=== PATIENT | male | born 1970 | race Hispanic/Latino ===

== ENCOUNTER 2019-09-30 08:07 | Day surgery (SDC) | payer OTHER, SELFPAY ==
[2019-09-28 15:20] VITALS: BMI 26.2
[2019-09-30] VITALS (24 sets, daily range): BP systolic 106–170; BP diastolic 74–109; PULSE 66–89; RESP 10–20; TEMP 35.7–37; O2SAT 94–100; BMI 26.2
--- NOTE | 2019-09-30 | DI.RAD.S_ITS ---
PROCEDURE: XR CERVICAL SPINE 2V OR 3V INDICATIONS: C4-5, C5-C6, ACDF TECHNIQUE: 2 view(s) of the cervical spine were acquired. COMPARISON: [facility] Outside Film, MR, MR CERVICAL SPINE WITHOUT CONTRAST, 06/08/2019, 17:10. [facility], RF, CERVICAL TRANSLAMINAR, 04/22/2019, 8:16. FINDINGS: Bones: Immediately postoperative examination, targeted to the area of surgical intervention at C4-5 and C5-6. Interbody disc prosthesis has been placed at each of these 2 levels, centrally positioned, and no abnormal subluxation is present. Soft tissues: No prevertebral soft tissue swelling. IMPRESSION: Normal alignment established after discectomy and interbody disc prosthesis placement at C4-5 and C5-6. Dictated by: Sammy Timmons M.D. on 09/30/2019 at 12:27 Approved by: Sammy Timmons M.D. on 09/30/2019 at 12:28
[2019-09-30] MEDS: LACTATED RINGERS 1,000 ML 42 ML IV (09:12)
[2019-09-30] MEDS: CELECOXIB 200 MG CAPSULE 400 MG PO (09:16)
[2019-09-30] MEDS: GABAPENTIN 300 MG CAPSULE PO ×2 (09:16→19:59)
[2019-09-30] MEDS: ACETAMINOPHEN 325 MG TABLET 975 MG PO (09:16)
--- NOTE | 2019-09-30 09:58 | PM.PREOP ---
Pre-operative Note Interval Note History & Physical reviewed/Exam performed by Physician: Yes Changes to H&P: No
--- NOTE | 2019-09-30 10:07 | P.OP_ITS ---
Operative Date/Time/Diagnoses Date of procedure: 09/30/19 Time of procedure: 12:11 Pre-op diagnosis: Cervical disc herniation with radiculopathy Post-op diagnosis: same Procedure & Clinicians Procedure: C4-5, C5-6 anterior cervical diskectomy and artificial disc replacement Use of microscope Same procedure as scheduled: Yes Indications: [age] year old male with intractable pain from cervical disc herniation. They had failed conservative management and requested operative intervention. Risks and benefits of surgery were discussed and appropriate consents were obtained. Surgeon: Smith White Tutor Coordinator: Calvin Mehta Anesthesia Type: General Operative Notes Findings: None Closure Type: primary Specimen(s): none sent Prosthetic devices, grafts, tissues, transplants, or devices: Luis Angel Mobi-C Estimated Blood Loss (mL): 10 Procedure in detail: Patient was brought to the operating room and intubated on the table. A time-out was performed. Preoperative antibiotics were given. The neck was prepped and draped in the standard sterile fashion. Using a skin fold, we made a 3 cm oblique incision on the left side. We used Bovie to go through the platysma and then did a standard anterolateral blunt dissection down to the precervical fascia. Fascia was nicked and elevated up. A marker was placed and x-ray was taken for localization. We then subperiosteally elevated up the longus colli muscles. Self-retaining retractors were placed. Fontana pins were placed under x-ray guidance to be parallel to the endplates. We then brought in the microscope. A scalpel used to perform an annulotomy. We then used a combination of pituitaries and curettes and Kerrison to perform a complete anterior diskectomy at C4-5. We took down the PLL and used Kerrison to remove any posterior disc material and osteophytes. At the end we could from the nerve hook cephalad caudally and out the foramen and everything was opened. We distracted open with the parallel appellate court clerk. We then used the horseshoes for sizing. We then used the trials. We then inserted a 13 x 15 x 5 mm size Mobi-C artificial disc replacement under fluoroscopic guidance for positioning. The traction was released and x-ray was checked again. We then moved the retractors down to C5-6. A scalpel used to perform an annulotomy. We then used a combination of pituitaries and curettes and Kerrison to perform a complete anterior diskectomy at C5-6. We took down the PLL and used Kerrison to remove any posterior disc material and osteophytes. At the end we could from the nerve hook cephalad caudally and out the foramen and everything was opened. We distracted open with the parallel appellate court clerk. We then used the horseshoes for sizing. We then used the trials. We then inserted another 13 x 15 x 5 mm size Mobi-C artificial disc replacement under fluoroscopic guidance for positioning. The traction was released and x-ray was checked again. The self-retaining retractors and Fontana pins were removed and final x-rays taken. The wound was irrigated. There was no bleeding. The carotid was beating nicely. The platysma was closed. The superficial was closed. The skin was closed. A sterile dressing was placed. They were then extubated and brought to recovery room with no complications. Complications: none Post-operative Condition: stable Disposition: PACU Plan for aftercare: Overnight admission. Soft collar for comfort.
[2019-09-30] MEDS: CEFAZOLIN 2 GM/100 ML FROZ.PIGGY IV ×2 (10:45→19:20)
--- NOTE | 2019-09-30 11:18 | SUR.OPER ---
Supine, head on gel donut. Arms padded with gel pads, tucked at sides, towel roll under shoulders. Safety belt at thigh. Legs uncrossed.
--- NOTE | 2019-09-30 11:23 | SUR.OPER ---
Fei encinas lower body model# [id number] on high
[2019-09-30] MEDS: THROMBIN (RECOMBINANT) 5,000 UNIT VIAL 5000 UNIT TOP (11:35)
[2019-09-30] MEDS: BUPIVACAINE 0.25% W/ EPI 30 ML VIAL INJ (11:36)
[2019-09-30] MEDS: SODIUM CHLORIDE 0.9% 1,000 ML, GENTAMICIN 80 MG IRR (11:52)
[2019-09-30] MEDS: fentaNYL 100 MCG/2 ML INJ IV ×6 (12:40→13:45)
--- NOTE | 2019-09-30 12:54 | SUR.PHASEI ---
1245 - Anesthesia at bedside assessing pt's comfort level, pt. rated pain at a 9
[2019-09-30] MEDS: HYDROMORPHONE 2 MG INJ IV ×8 (13:00→13:35)
--- NOTE | 2019-09-30 13:21 | SUR.PHASEI ---
report to Kristy Canela RN
[2019-09-30] MEDS: LACTATED RINGERS 1,000 ML 120 ML IV (13:30)
--- NOTE | 2019-09-30 15:42 | PC.NURSE ---
Pt was brought to the AC floor via bed from PACU at approx. 1420. He is accompanied by his paraprofessional interpreter. Pt is sleepy but rousable to voice. Dressing to anterior neck is dry and intact with a quarter size amt of sero-sanguineous drainage. Soft collar is in place. His janelle joined him at the bedside shortly after arriving to the room. She has asked to speak to surgery logging crew supervisor as she is frustrated by a lack of communication during her husbands time in PACU. This has been communicated to surgery staff, by this nurse and they have taken the patient's , Betty's cell number with promise to contact.
[2019-09-30] MEDS: HYDROMORPHONE 0.5 MG INJ IV ×2 (16:18→19:55)
[2019-09-30] MEDS: ONDANSETRON 4 MG/2 ML INJ IV (17:43)
[2019-09-30] MEDS: LACTATED RINGERS 1,000 ML 125 ML IV ×2 (17:44→20:31)
[2019-09-30] MEDS: hydrOXYzine pamoate 25 MG CAPSULE PO (17:46)
--- NOTE | 2019-09-30 18:31 | PC.NURSE ---
Addendum entered by Carmela Bell R.N. 09/30/19 22:33: Rates surgical pain 05/20 and was given naproxen as well as iv dilaudid. Denies nausea. Admits to left scapular pain and states pre-op experienced right scapular pain. 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 Admits to nausea when encouraged to take yogurt with po meds. Reglan administered. Up to bathroom to void with DATA VISUALIZATION DEVELOPER and returned to bed. Requests break from scd's. Addendum entered by Carmela Bell R.N. 09/30/19 19:25: Resting quietly in bed with eyes closed. No further c/o pain or nausea. Room air 95%. Flu vaccine deferred until a.m. prior to discharge. Pt's spouse has left for the evening. Original Note: 1550: Phone call from hourly sign language interpreter service, Teresa, inquiring if pt is in need of anesthesiologists' assistant. Placed this call on hold and in to talk to pt's spouse, Betty, who is present in pt's room. Spouse reports pt is able to speak and understand [place]. States hourly sign language interpreter was present earlier and spouse states, I sent him home because it wasn't necessary. Goes on to state she can also translate for pt. Informed spouse anesthesiologists' assistant is preferred method, but if pt is able to speak and understand [place] there obviously is not a need. This ticket writer then had conversation with pt and pt is able to make needs and wants known to staff. Expresses pain to neck and nausea with attempting to eat. Medicated as per emar. Room air 95%. Head of bed elevated and pt prefers no pillow. Soft collar in place. This was removed briefly to inspect dressing. Moderate amount serosanguinous drainage contained within dressing. Soft collar replaced with ice to region. Dr. White in to see patient and speak with spouse. Anticipates discharge in a.m. Spouse does report pt experiencing left shoulder pain. Vistaril given to manage complaints as well as dilaudid and zofran. Denies need to urinate. BL calf scd's in place.
[2019-09-30] MEDS: NAPROXEN 250 MG TABLET 500 MG PO (19:58)
[2019-09-30] MEDS: DOCUSATE 100 MG CAPSULE PO (19:58)
[2019-09-30] MEDS: SENNOSIDES 8.6 MG TABLET 17.2 MG PO (19:59)
[2019-09-30] MEDS: METOCLOPRAMIDE 10 MG/2 ML INJ IV (20:31)
[2019-10-01] MEDS: BENZOCAINE/MENTHOL 1 LOZ PKT 1 EACH PO (00:34)
[2019-10-01 00:35] VITALS: BP 125/70; PULSE 101; RESP 18; TEMP 36.8; O2SAT 96
--- NOTE | 2019-10-01 01:33 | PC.NURSE ---
Addendum entered by Roxann Rebollar R.N. 10/01/19 02:24: Complains of 7/10 neck and left shoulder pain; medicated with Vicodin after eating some saltines. Original Note: Patient seen and assessed at 0035. Is alert and oriented. Breath sounds CTA with RA sat of 96%. HRR although slightly tachy at 101 bpm. Denies current nausea. BT present and states he has passed flatus. Reports dysuria with voiding earlier; instructed to inform staff/MD if symptom should continue; no frequency or urgency. Is able to turn himself in bed. Has been getting up with SBA. Dressing to anterior neck is intact with drainage previous outlined and no new drainage noted. CMS is intact. Wearing soft collar for comfort. Denies pain although does state his throat is sore; medicated with Cepacol lozenge. Denies dysphagia. Has had foot SCD's off so now agreeable to having them put back on. Fall risk score is moderate and bed alarm is activated for safety.
[2019-10-01] MEDS: CEFAZOLIN 2 GM/100 ML FROZ.PIGGY IV (02:20)
[2019-10-01] MEDS: HYDROCODONE/ACET 5/325 TABLET 2 TAB PO ×2 (02:20→08:43)
[2019-10-01] MEDS: LACTATED RINGERS 1,000 ML 125 ML IV (04:28)
[2019-10-01 05:30] VITALS: BP 118/70; PULSE 84; RESP 18; TEMP 37.1; O2SAT 96
--- NOTE | 2019-10-01 07:37 | PM.PNPO.1 ---
Subjective Subjective Date Patient Seen: 10/01/19 Time Patient Seen: 07:37 Interval history: He is doing very well. No more arm symptoms. Neck pain is tolerable. Swallowing okay. Exam Vital Signs (past 8 hours): - 10/01/19 00:35 10/01/19 05:30 Temperature 98.3 F 98.7 F Pulse Rate 101 H 84 Respiratory Rate 18 18 Blood Pressure 125/70 118/70 Pulse Oximetry 96 96 Oxygen Delivery Method Room Air Oxygen Flow Rate 0 Const Orientation: alert and oriented x3 Back/Spine/Pelvis Other: Mild dry drainage. 5/5 motor both upper extremities Assessment & Plan Post-op Postoperative Procedures: Procedures Operation Date: 09/30/19 10:15 Actual Procedures Side Surgeon p C45 & C56 anterior discectomy & artificial disc replacement Smith White MD he is doing well. Plan to discharge home today. Quality VTE Deep Vein Thrombosis/Pulmonary Embolism Present on Admission: No
--- NOTE | 2019-10-01 08:35 | PT.IIE ---
Current Diagnoses Other cervical disc displacement, unspecified cervical region (09/30/19) Strain of muscle, fascia and tendon at neck level, initial encounter (09/30/19) Surgery Performed Operation Date: 09/30/19 10:15 Actual Procedures p C45 & C56 anterior discectomy & artificial disc replacement - Smith White MD Surgical History (Last Updated 09/29/19 @ 08:54 by Anuradha Benjamin RN) No history of previous surgery (Acute) Medical History (Last Updated 09/29/19 @ 09:00 by Anuradha Benjamin RN) Neck pain (Acute 02/16/18) PTSD (post-traumatic stress disorder) (Acute) Rib fractures (Acute 02/16/18) Right shoulder pain (Acute) Spleen laceration (Acute 02/16/18) Physical Therapy Inpatient Evaluation/Re-Eval M1 PT/OT-IP Prior Functional Status Start: 10/01/19 07:46 Freq: NEEDED Status: Active Protocol: Document 10/01/19 07:50 HH (Rec: 10/01/19 08:35 [email or web address]) Medical Review Prior Functional Status Medical History Reviewed Yes Diet/Fluid Consistency Regular Communication no deficits noted. able to make needs known Mobility and Gait Independent for all mobility without ad Activities of Daily Living and IADL's independent for all ADLs and IADLs. Able to drive. Social History Household Members spouse,children Living Arrangements House Number of Floors (Floors) One Floor Number of Stairs To Enter/Railing? 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 pt sustained a laceration to his spleen, facial contusion and ongoing neck with neurological symptoms to his UEs. 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 M2 PT-IP Current Condition Start: 10/01/19 07:46 Freq: NEEDED Status: Active Protocol: Document 10/01/19 07:50 HH (Rec: 10/01/19 08:35 [email or web address]) Physical Therapy Current Condition Current Condition Evaluation Date 10/01/19 Treatment Diagnosis C4-6 ACDF, arm weakness and numbness Onset Date 09/30/19 Precautions Cervical Spine Precautions Soft Collar for Comfort,Rigid Collar,No Heavy Lifting,Log Roll Weight Bearing Status Weight Bearing Status Full Weight Bearing M3 PT-IP Subjective Start: 10/01/19 07:46 Freq: NEEDED Status: Active Protocol: Document 10/01/19 07:50 (Rec: 10/01/19 08:35 [id number]) Subjective Physical Therapy Visit Type Type Initial Evaluation Visit Start Time 07:50 Visit Stop Time 08:15 Total Visit Minutes 25 Number of PAN WASHER Visits 0 Physical Therapy Visit Comments Patient Comments My pain is at 4/10 Patient Goals To return home with family Therapy Pain Assessment Pain When Pain Assessed During Mobility Pain Present Pain Present Pain Reported Location neck and bilateral arms Intensity 4 Scale Used Numeric (1 - 10) Description Pressure Pain Management Techniques Timing of Activity with Medications M4 PT-IP Mobility and Gait Start: 10/01/19 07:46 Freq: NEEDED Status: Active Protocol: Document 10/01/19 07:50 (Rec: 10/01/19 08:35 [id number]) PT-Bed Mobility Assessment Rolling Type of Rolling Log Rolling,Roll to Left Level of Assist Independent Supine to Sit Supine to Sit Independent Scooting Scooting to Edge of Bed Independent PT-Transfer Assessment Sit to and From Stand Sit to and from Stand Independent Equipment Transfer Assistive Device Gait Belt Orthotic/Prosthetic Devices or Brace: No Transfers Transfer Destination Bed,Chair,Toilet Transfer Technique Stand Step Pivot Transfer Ability Level of Assist Independent Comments Mobility Comments Pt resting in bed upon assessment. Educated pt post op precautions and log roll for bed mobility. Pt completed log roll to L and able to sit up from SL position independently. He then amb to sink counter for collar fitting and able to amb in the hallway without AD. He then returned to his room and used bathroom for toileting independently. He safely returned to bedside chair after with call light within reach. Gait Assessment Gait Gait Assistance Required: Standby Assistance Distance (Feet) 220 Able to Maintain Weight Bearing Status Yes During Gait Assistive Devices Assistive Device Gait Belt Orthotic/Prosthetic Devices or Brace: Yes Gait Deviations General Gait Pattern Within Normal Limits Factors Limiting Gait Function Factors Limiting Gait Function Pain Comments Gait Comments see mobility comments Stair Climbing Assessment Evaluation Level of Assist On Stairs Standby Assistance Devices Stair Climbing Assistive Devices None Technique/Endurance Stair Climbing Direction Ascend and Descend Stair Climbing Technique Step Over Step,Step to Step Number of Steps Climbed 3 Query Text: Stair Climbing Set # Repetitions (reps) 2 Comments Stair Climbing Comments step over pattern for ascend; step to for descend PT-Balance Assessment Sitting Balance and Reactions Static Sitting Balance Ability Normal Dynamic Sitting Balance Ability Normal Standing Balance and Reactions Static Standing Balance Ability Normal Dynamic Standing Balance Ability Normal M5 PT-IP Objective Assessments Start: 10/01/19 07:46 Freq: NEEDED Status: Active Protocol: Document 10/01/19 07:50 HH (Rec: 10/01/19 08:35 [email or web address]) Orientation Orientation/Cognition Level of Alertness Alert Orientation Name,Age,Birthday,Month,Date, Year,Day of Week,Place, Situation Language Function Ability No Deficits Noted Safety Awareness Understands Safety Issues Memory Description No Deficits Noted Gross Range of Motion Upper Extremity ROM Assessment Within Functional Limits Lower Extremity ROM Assessment Within Functional Limits Strength Upper Extremity Strength Assessment Within Functional Limits Shoulder 4/5 Elbow 4/5 Wrist 5/5 Hand 5/5 Lower Extremity Strength Assessment Within Functional Limits Comments Strength Comments shoulders are grossly weaker d /t pain during muscle contraction. But no differenct between L/ R Coordination Assessment Gross Coordination Gross Coordination WNL Sensation Assessment Sensation Gross Sensation WNL Light Touch Intact Proprioception (Position) Intact Muscle Tone Muscle Tone WNL Yes M6 PT-IP Treatment Start: 10/01/19 07:46 Freq: NEEDED Status: Active Protocol: Document 10/01/19 07:50 HH (Rec: 10/01/19 08:35 [email or web address]) Physical Therapy Treatment Education Education Provided Precautions,Weight Bearing Status,Post-Op Packet,Safety Brace Education [place],Patient M7 PT-IP Assessment and Plan Start: 10/01/19 07:46 Freq: NEEDED Status: Active Protocol: Document 10/01/19 07:50 (Rec: 10/01/19 08:35 [email or web address]) PT Summary Assessment and Plan Potential Rehabilitation Potential Excellent Status of Condition at Evaluation Stable Summary Impairments Pain,ROM,Strength Progress Towards Goals Safe For Discharge Assessment Summary This is a low complexity eval only for this 49yo male s/p POD2 C4-6 ACDF. Upon assessment, pt denies any neurological symptoms/ weakness but with shoulder pain 11/18. He was able to follow all precautions for all mobility assessment, and completed stair climbing, transfers, bed mob and gait independently. He is very safe and well aware of his condition. Pt is currently safe to d/c home with family's assistance Frequency of Treatment Frequency Of Treatment Discharge Recommendations To Nursing Amount of Assist Needed Independent Discharge Recommendations PT Discharge Recommendations Home,Home with Assistance Transportation Needs at Discharge Private Vehicle
[2019-10-01] MEDS: NAPROXEN 250 MG TABLET 500 MG PO (08:42)
[2019-10-01] MEDS: DOCUSATE 100 MG CAPSULE PO (08:42)
--- NOTE | 2019-10-01 08:51 | PC.NURSE ---
Assess- Patient is A&Ox3. He states that his pain is a 7/10. Just given 2 Vicodin for pain and naproxen. He is having no difficulty swallowing. Dressing is cdi with small amount of old, bloody drainage. Will change dressing before he goes home today. Soft Collar in place and patient is sitting up in the chair resting and eating breakfast.
[2019-10-01 08:52] VITALS: BP 139/85; PULSE 76; RESP 18; TEMP 36.4; O2SAT 98
--- NOTE | 2019-10-01 09:25 | OT.IP.EVAL ---
Current Diagnoses Other cervical disc displacement, unspecified cervical region (09/30/19) Strain of muscle, fascia and tendon at neck level, initial encounter (09/30/19) Surgery Performed Operation Date: 09/30/19 10:15 Actual Procedures p C45 & C56 anterior discectomy & artificial disc replacement - Smith White MD Past Medical History (Last Updated 09/29/19 @ 09:00 by Anuradha Benjamin, RN) Neck pain (Acute 02/16/18) PTSD (post-traumatic stress disorder) (Acute) Rib fractures (Acute 02/16/18) Right shoulder pain (Acute) Spleen laceration (Acute 02/16/18) Surgical History (Last Updated 09/29/19 @ 08:54 by Anuradha Benjamin RN) No history of previous surgery (Acute) Occupational Therapy Inpatient Evaluation/Re-Eval M1 PT/OT-IP Prior Functional Status Start: 10/01/19 07:46 Freq: NEEDED Status: Active Protocol: Document 10/01/19 09:25 [email or web address] (Rec: 10/01/19 17:05 PJ [id number]) Medical Review Prior Functional Status Medical History Reviewed Yes Diet/Fluid Consistency Regular Communication WNL, primary language is Dutch but pt speaks and understands Guatemalan. He states he does not read Guatemalan well , but his does and she can assist him with written educational material provided. Mobility and Gait Independent for all mobility without a device Activities of Daily Living and IADL's Independent for all ADLs and IADLs. Able to drive. 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 Pt injured when a cow charged him at work on 02/16/18. He sustained a laceration to his spleen, facial contusion and ongoing neck injury with neurological symptoms in BUEs. 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 Social History Household Members spouse,children Living Arrangements House Number of Floors (Floors) One Floor Number of Stairs To Enter/Railing? 3 JOSEFINA w/o rails Home Environment Standard Height Toilet,Walk in Shower Employment Status [employer] Employed M2 OT-IP Current Condition Start: 10/01/19 08:30 Freq: Status: Active Protocol: Document 10/01/19 09:25 PJM (Rec: 10/01/19 17:05 [facility] [id number]) Occupational Therapy Current Condition Current Condition Evaluation Date 10/01/19 Treatment Diagnosis decr'd self care s/p C4-5,C5-6 anterior diskectomy w/ artificial disc placed Diagnosis Onset Date 09/30/19 Post Operative Precautions Cervical Spine Precautions Soft Collar for Comfort,No Heavy Lifting,Log Roll M3 OT- IP Subjective and Pain Start: 10/01/19 08:30 Freq: Status: Active Protocol: Document 10/01/19 09:25 PJM (Rec: 10/01/19 17:05 [facility] [id number]) OT- Subjective Occupational Therapy Visit Type Type Initial Evaluation Visit Start Time 09:08 Visit Stop Time 09:25 Total Visit Minutes 17 Occupational Therapy Visit Comments Patient Comments I am feeling okay. Patient/Caregiver Goals to go home today, to have less neck and arm pain, return to work when MD permits OT Pain Assessment Pain When Pain Assessed After Treatment Pain Present Pain Present Pain Reported Location neck and bilateral arms Intensity 4 Scale Used Numeric (1 - 10) Description Aching,Acute Pain Behaviors Guarding,Wincing Management Techniques Distraction,Re-positioning, Timing of Activity with Medications M4 OT- IP ADL's Start: 10/01/19 08:30 Freq: Status: Active Protocol: Document 10/01/19 09:25 PJM (Rec: 10/01/19 17:05 [facility] [id number]) OT [id number] General Evaluation Self-Feeding Ability Independent Comments OT Self-Feeding Comments pt denies deficits with swallowing his breakfast items OT ADL-Grooming General Evaluation Grooming Ability Independent Comments OT Grooming Comments provided education re: body mechanics standing at sink OT ADL-Oral Care General Eval Oral Care Ability Independent Comments Oral Care Comments provided education re: body mechanics standing at sink OT ADL-Dressing General Eval Upper Body Dressing Ability Independent Lower Body Dressing Ability Independent Areas Needing Assistance Pull-Over Shirt,Pants/Shorts, Socks,Shoes Comments OT Dressing Comments provided education re: body mechanics and C spine precautions, no adpative equipment needed OT ADL-Toileting General Evaluation Toileting Ability Independent OT ADL-Bathing Comments OT Bathing Comments Pt declines ot shower here. Provided education re: body mechanics and methods to keep incision dry. 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 M5 OT- IP IADL's Start: 10/01/19 08:30 Freq: Status: Active Protocol: Document 10/01/19 09:25 PJM (Rec: 10/01/19 17:05 [facility] [id number]) OT-Instrumental Activities of Daily Living Deficits IADL Deficits Identified Deficits Home Safety Awareness Awareness of Need for Assistance at Home Good Awareness Ability to Problem Solve Emergency Able to Problem Solve Situations Medication Management Medication Management No Deficits Identified Money Management Money Management No Deficits Identified Meal Preparation Meal Preparation Caregiver Provides Assist Meal Preparation Comments family to assist PRN Medical Records Assistant Medical Records Assistant Caregiver Provides Assist Medical Records Assistant Comments family to assist PRN Driving Driving Caregiver Provides Assist Driving Comments family to assist PRN until pt able M6 OT- IP Functional Cognition Start: 10/01/19 08:30 Freq: Status: Active Protocol: Document 10/01/19 09:25 PJM (Rec: 10/01/19 17:05 [facility] [id number]) Cognitive Factors Limiting Selfcare Function Cognitive Ability Level of Alertness Alert Patient Orientation Name,Age,Birthday,Month,Date, Year,Day of Week,Place, Situation Attention Span Ability Capable of Focused Attention, Capable of Sustained Attention Ability to Follow Commands Able to Follow Multi-Step Commands Memory Description No Deficits Noted Safety Awareness No Deficits Noted Problem Solving Ability No deficits Noted Executive Function Ability No Deficits Noted Cognitive Comments Cognitive Assessment Comments Pt verbalizes and demonstrates understanding of C spine precautions. OT- Vision and Hearing OT- Hearing Assessment OT- Hearing Assessment WFL OT- Vision Assessment Visual Acuity WFL,Glasses For Reading M7 OT- IP Mobility and Balance Start: 10/01/19 08:30 Freq: Status: Active Protocol: Document 10/01/19 09:25 PJM (Rec: 10/01/19 17:05 [facility] [id number]) OT-Transfer Assessment Sit to and From Stand Sit to and from Stand Independent Transfers Transfer Ability Independent Technique Transfer Destination Chair Transfer Technique Stand Step Pivot Devices Transfer Assistive Devices None OT- Gait Assessment Gait Distance (Feet) 20 Assistive Devices Assistive Device None OT- Balance Assessment Sitting Balance and Reactions Static Sitting Balance Ability Good Dynamic Sitting Balance Ability Good Standing Balance and Reactions Static Standing Balance Ability Good Dynamic Standing Balance Ability Good M8 OT- IP Objective Assessments Start: 10/01/19 08:30 Freq: Status: Active Protocol: Document 10/01/19 09:25 PJM (Rec: 10/01/19 17:05 [facility] [id number]) OT Gross Range of Motion Upper Extremity Range of Motion Assessment Within Functional Limits ROM Impairments within C spine precautions OT Strength Comments Strength Comments WFL within C spine precautions OT- Coordination Assessment Comments Coordination Comments BUE WFL for self care OT-Muscle Tone Assessment Muscle Tone WNL Yes OT Sensation Assessment Comments Summary Comments Pt reports some numbness/ tingling down RUE into R index finger and thumb. Edema Edema Absent M9 OT- IP Assessment and Plan Start: 10/01/19 08:30 Freq: Status: Active Protocol: Document 10/01/19 09:25 PJM (Rec: 10/01/19 17:05 [facility] [id number]) OT Summary Assessment and Plan Potential Rehabilitation Potential Excellent Summary Progress Towards Goals Safe For Discharge Assessment Summary Low complexity OT assessment and all education completed in one session re: C spine precautions and adapted ADL techniques as described above. Pt verbalizes and demonstrates understanding of all education. Pt plans to d/c home today with assist from working who is a nurse. She plans to take 3 days off to assist pt. No further OT services needed. Frequency of Treatment Frequency Of Treatment Discharge Discharge Recommendations OT Discharge Recommendations Home with Assistance Transportation Needs at Discharge Private Vehicle
--- NOTE | 2019-10-01 14:11 | CM.IDA ---
Initial DCP Assessment Note: Pt is a 49 yo male, resident of [place], [place], now POD#1 from p C45 & C56 anterior discectomy & artificial disc replacement - Smith White MD PCP: Unknown Payer: L&I Reviewed chart, pt discussed in multidisciplinary rounds this morning. Therapy has cleared pt for return home w/family to assist and pt has planned for home, DC order from [facility] has already been initiated this morning. No needs expected from DC planning team although will remain available in case this changes today. JUAN Capps
== END 2019-10-01 11:43 | disposition home or self-care (01) ==
LOC: OR 08:10 → AC 08:12
PROVIDERS: Referring Provider Orthopaedic Surgery; Visit Provider Orthopaedic Surgery
PROC: (CPT 22856; principal; 2019-09-30 10:15)
DX: M50.121 Cervical disc disorder at C4-C5 level with radiculopathy (principal); S16.1XXA Strain of muscle, fascia and tendon at neck level, initial encounter; W55.22XA Struck by cow, initial encounter; Y99.0 Civilian activity done for income or pay
CPT/HCPCS: 22856; 22858; 72040; 76000; 97161; 97165; 97530; C1776; J0330; J0690; J1100; J1170; J2250; J2405; J2704; J2765; J3010